=== PATIENT | female | born 1940 | race Caucasian/White ===

== ENCOUNTER 2016-11-17 21:31 | Observation (INO) | payer OTHER ==
[2016-11-17] MEDS ORDERED: TRANEXAMIC ACID 1,000 MG/10 ML VIAL TP ONE (22:05)
[2016-11-17] MEDS ORDERED: OXYMETAZOLINE 30 ML NASAL SPRAY EACHNARE ONE (22:05)
--- NOTE | 2016-11-17 22:15 | EDPHY ---
H & P Smoking Status: Never smoked Time Seen by Provider: 11/17/16 21:47 HPI/ROS: CHIEF COMPLAINT: Left-sided epistaxis HISTORY OF PRESENT ILLNESS: 76-year-old female on daily Pradaxa complaining of left-sided epistaxis since this evening. Arrives by ambulance. Epistaxis not controlled via direct pressure. No dizziness. No nausea or vomiting. No syncope or near syncope. No chest pain. No dyspnea. No visual disturbance. PRIMARY CARE PROVIDER: REVIEW OF SYSTEMS: A ten point review of systems was performed and is negative with the exception of the items mentioned in the HPI PAST MEDICAL & SURGICAL HISTORY: Atrial fibrillation. Pulmonary hypertension. SOCIAL HISTORY:nonsmoker PHYSICAL EXAM (Prior to examination, patient consented to physical exam, hands were washed and my usual and customary physical exam procedures followed) 1) GENERAL: Well-developed, well-nourished, alert and oriented. Appears anxious 2) HEAD: Normocephalic, atraumatic 3) HEENT: Pupils equal, round, reactive to light bilaterally. Sclera anicteric. Nasopharynx: Bleeding bilaterally, appears to be primary source on the left side with visible active bleeding area is noted anteriorly. 4) NECK: Full range of motion, no meningeal signs. 5) LUNGS: Clear auscultation bilaterally, no wheezes, no rhonchi, no retractions. 6) HEART: Regular rate and rhythm, no murmur, no heave, no gallop. 7) ABDOMEN: No guarding, no rebound, no focal tenderness,, 8) MUSCULOSKELETAL: No peripheral edema or discoloration.] 9) BACK: No CVA tendernessy. 10) SKIN: No rash, no petechiae. 11) Psychiatric: Patient is oriented X 3, there is no agitation. DIFFERENTIAL DIAGNOSIS: In no particular include but limited to anterior epistaxis, posterior epistaxis, anemia (Abraham,Vincent Chanel) Constitutional: Initial Vital Signs Temperature (C) 36.4 C 11/17/16 21:35 Heart Rate 92 11/17/16 21:35 Respiratory Rate 18 11/17/16 21:35 Blood Pressure 107/85 H 11/17/16 21:35 O2 Sat (%) 96 11/17/16 21:35 O2 Delivery Mode Room Air Allergies/Adverse Reactions: NSAIDS (Non-Steroidal Anti-Inflamma Allergy (Intermediate, Verified 11/17/16 21: 50) Rash quinidine Allergy (Verified 11/17/16 21:50) shellfish derived Allergy (Verified 11/17/16 21:50) Home Medications: Medication Instructions Recorded Atenolol [Tenormin 100 mg (*)] 100 mg PO BID 08/01/15 Losartan Potassium [Cozaar 50 mg 50 mg PO DAILY 08/01/15 (*)] Dabigatran Etexilate Mesyl 150 mg PO BID 06/27/16 [Pradaxa 150 MG (*)] Ferrous Sulfate [Ferrous Sulf 325 325 mg PO DAILY #14 tab 11/18/16 MG (*)] Furosemide [Lasix 20 MG (*)] 20 mg PO DAILY PRN 11/18/16 Potassium Chloride [Klor-Con 10] 10 meq PO DAILY PRN 11/18/16 MDM/Departure - MDM Medications Given: Discontinued Medications Oxymetazoline HCl (Afrin Nasal [place]) 2 sprays EACHNARE EDNOW ONE Stop: 11/17/16 22:06 Last Admin: 11/17/16 22:29 Dose: 2 sprays Tranexamic Acid (Cyklokapron) 500 mg TP EDNOW ONE Stop: 11/17/16 22:06 Last Admin: 11/17/16 22:30 Dose: 500 mg ED Course/Re-evaluation: 11:20 p.m.: Patient is currently hemostatic after having rapid rhino packing placed. H&H was recheck and she has had a 10 point drop in her hematocrit in 30 minutes. This was redrawn just after placement of nasal packing. Discussed case Dr. Eri Howard in the ER. Expressed to the patient concern in her rapid hematocrit in presence of epistaxis. She is currently hemostatic. I do not think that discharge home is safe at this time. Patient is agreeable with this. I have reviewed old medical records she has had prior admissions for similar. 11:32 p.m.: Phone consultation with hospitalist Dr. De La Torre will admit patient for observation (Vincent Rosario) This patient was managed and treated by the physician temporary administrative assistant, in conjunction with me. She is a 76 year old female on Pradaxa for atrial fibrillation. She presented with left sided epistaxis. No trauma. She feels mildly lightheaded, denies chest pain or shortness of breath. Her bleeding was controlled with rhinostat nasal packing. When I examined her the rhinostat was in place and bleeding was under control. Her lungs were clear, heart irregularly irregular. Bloodwork revealed a decrease in Hgb from 14.5 to 12 and a decrease in Hct from 44.8 to 35.2 during her ED stay. She lives alone and has had previous epistaxis requiring hospitalization. She is quite anxious about tonight's bleeding. I feel that hospitalization is appropriate for continued monitoring of hct and hgb and to insure complete control of her epistaxis. (Eri Howard ) - Depart Disposition: [facility] Inpatient Acute Clinical Impression: Anterior epistaxis Condition: Fair
[2016-11-17 22:39] LABS: % IMMATURE GRANULYOCYTES 0.2 % (0.0-1.1); ABSOLUTE IMMATURE GRANULOCYTES 0.02 10^3/uL (0.00-0.10); ADD DIFF? NO; ADD MORPH? NO; ADD SCAN? NO; ATYPICAL LYMPHOCYTE FLAG 10 (0-99); FRAGMENT RBC FLAG 0 (0-99); HEMATOCRIT 44.8 % (38.0-47.0); HEMOGLOBIN 14.5 g/dL (12.6-16.3); LEFT SHIFT FLG 0 (0-99); LIPEMIA HEMOLYSIS FLAG 80 (0-99); MEAN CELL HEMOGLOBIN 32.1 pg (27.9-34.1); MEAN CELL HEMOGLOBIN CONCENTR. 32.4 g/dL (32.4-36.7); MEAN CELL VOLUME 99.1 fL (81.5-99.8); MEAN PLATELET VOLUME 11.5 fL (8.7-11.7); PLATELET CLUMPS FLAG 60 (0-99); PLATELET COUNT 185 10^3/uL (150-400); RED BLOOD CELL COUNT 4.52 10^6/uL (4.18-5.33); RED CELL DISTRIBUTION WIDTH 15.8 % (11.5-15.2)
[2016-11-17 22:48] LABS: INR 1.26 (0.83-1.16); PROTIME(PATIENT) 15.8 SEC (12.0-15.0)
[2016-11-17 22:49] LABS: APTT 34.3 SEC (23.0-38.0)
[2016-11-17 22:51] LABS: ANION GAP 17 mEq/L (8-16); CALCIUM 9.7 mg/dL (8.5-10.4); CARBON DIOXIDE 21 mEq/l (22-31); CHLORIDE 106 mEq/L (97-110); CREATININE 0.9 mg/dL (0.6-1.0); GLOMERULAR FILTRATION RATE > 60; GLUCOSE 112 mg/dL (70-100); POTASSIUM 3.6 mEq/L (3.5-5.2); SODIUM 144 mEq/L (134-144)
[2016-11-17 23:03] LABS: % IMMATURE GRANULYOCYTES 0.4 % (0.0-1.1); ABSOLUTE IMMATURE GRANULOCYTES 0.03 10^3/uL (0.00-0.10); ADD DIFF? NO; ADD MORPH? NO; ADD SCAN? NO; ATYPICAL LYMPHOCYTE FLAG 10 (0-99); FRAGMENT RBC FLAG 0 (0-99); HEMATOCRIT 35.2 % (38.0-47.0); LEFT SHIFT FLG 0 (0-99); LIPEMIA HEMOLYSIS FLAG 90 (0-99); MEAN CELL HEMOGLOBIN 32.8 pg (27.9-34.1); MEAN CELL HEMOGLOBIN CONCENTR. 34.1 g/dL (32.4-36.7); MEAN CELL VOLUME 96.2 fL (81.5-99.8); MEAN PLATELET VOLUME 10.9 fL (8.7-11.7); PLATELET CLUMPS FLAG 0 (0-99); PLATELET COUNT 145 10^3/uL (150-400); RED BLOOD CELL COUNT 3.66 10^6/uL (4.18-5.33); RED CELL DISTRIBUTION WIDTH 15.7 % (11.5-15.2)
[2016-11-17] MEDS ORDERED: ACETAMINOPHEN 325 MG TAB PO PRN (23:56)
[2016-11-17] MEDS ORDERED: ONDANSETRON DISINTEGRATING 4 MG TAB PO PRN (23:56)
[2016-11-17] MEDS ORDERED: ONDANSETRON 4 MG/2 ML VIAL IVP PRN (23:56)
--- NOTE | 2016-11-18 00:05 | PDGENHP ---
History and Physical - Chief Complaint nosebleed - History of Present Illness Patient is a 76/F wiht Afib on pradaxa and HTN who presents to the ED with epistaxis. Patient states she was watching a movie in her home when she suddenly sneezed 4 times in a row. Shortly after this she developed a brisk nosebleed, with bright red blood oozing from her L nostril. She felt immediately that she would not be able to control the bleeding on her own, so she called EMS and was transported to the ED. She states she felt momentarily dizzy for a short time while waiting in the ED, however, denies any associated chest pain, pre-syncopal symptoms, palpitations or shortness of breath. Of note, she has had a history of epistaxis requiring hospital observation in 2014, but has not had a recurrence since then. On arrival to the ED, patient was afebrile and hemodynamically stable. CBC was drawn x 2 and showed evidence of H/H drop. A nasal rocket was placed in the L nare and bleeding stopped. She was then admitted to the hospitalist service for further management. History Information - Allergies/Home Medication List Allergies/Adverse Reactions: NSAIDS (Non-Steroidal Anti-Inflamma Allergy (Intermediate, Verified 11/17/16 21: 50) Rash quinidine Allergy (Verified 11/17/16 21:50) shellfish derived Allergy (Verified 11/17/16 21:50) Home Medications: Atenolol [Tenormin 100 mg (*)] 100 mg PO BID 08/01/15 [Last Taken 06/26/16 21:00 ] Losartan Potassium [Cozaar 50 mg (*)] 50 mg PO DAILY 08/01/15 [Last Taken ] Dabigatran Etexilate Mesyl [Pradaxa 150 MG (*)] 150 mg PO BID 06/27/16 [Last Taken 06/26/16 21:00] I have personally reviewed and updated: family history, medical history, social history, surgical history - Past Medical History Additional medical history: Atrial fibrillation. HTN - Surgical History Additional surgical history: tonsillectomy - Family History Additional family history: M: HTN. F: DM2 - Social History Smoking Status: Never smoked Alcohol Use: None Drug Use: None Additional social history: Patient is retired, lives alone. Review of Systems ROS: 10pt was reviewed & negative except for what was stated in HPI & below Physical Exam Temp Pulse Resp BP Pulse Ox 36.7 C 88 16 116/81 H 90 L 11/17/16 23:52 11/17/16 23:52 11/17/16 23:52 11/17/16 23:52 11/17/16 23:52 Constitutional: no apparent distress, appears nourished, not in pain Eyes: PERRL, anicteric sclera, EOMI Ears, Nose, Mouth, Throat: other (L nare with nasal packing in place; evidence of recent bleeding but no active bleeding present; no blood seen in the posterior pharynx) Cardiovascular: no murmur, rub, or gallop, irregularly irregular, pulses symmetric bilaterally, edema (1+ bilateral pitting edema), No JVD Peripheral Pulses: 2+: dorsalis-pedis (R), dorsalis-pedis (L) Respiratory: no respiratory distress, no rales or rhonchi, clear to auscultation Gastrointestinal: normoactive bowel sounds, soft, non-tender abdomen, no palpable masses, No guarding, No rebound Genitourinary: no bladder fullness, no bladder tenderness Skin: warm, normal color, no rashes or abrasions, no fluctuance, no induration, No mottled Musculoskeletal: full muscle strength, no muscle tenderness, normal joint ROM, no joint effusions Neurologic: AAOx3, sensation intact bilaterally, CN II-XII Intact, No weakness, No numbness Lab Data & Imaging Review 11/17/16 22:45 11/17/16 22:28 WBC 7.22 10^3/uL (3.80-9.50) 11/17/16 22:45 RBC 3.66 10^6/uL (4.18-5.33) L 11/17/16 22:45 Hgb 12.0 g/dL (12.6-16.3) L 11/17/16 22:45 Hct 35.2 % (38.0-47.0) L 11/17/16 22:45 MCV 96.2 fL (81.5-99.8) 11/17/16 22:45 MCH 32.8 pg (27.9-34.1) 11/17/16 22:45 MCHC 34.1 g/dL (32.4-36.7) 11/17/16 22:45 RDW 15.7 % (11.5-15.2) H 11/17/16 22:45 Plt Count 145 10^3/uL (150-400) L 11/17/16 22:45 MPV 10.9 fL (8.7-11.7) 11/17/16 22:45 Neut % (Auto) 59.8 % (39.3-74.2) 11/17/16 22:45 Lymph % (Auto) 28.9 % (15.0-45.0) 11/17/16 22:45 [place] % (Auto) 8.7 % (4.5-13.0) 11/17/16 22:45 Eos % (Auto) 1.5 % (0.6-7.6) 11/17/16:45 Baso % (Auto) 0.7 % (0.3-1.7) 11/17/16 22:45 Nucleat RBC Rel Count 0.0 % (0.0-0.2) 11/17/16 22:45 Absolute Neuts (auto) 4.31 10^3/uL (1.70-6.50) 11/17/16 22:45 Absolute Lymphs (auto) 2.09 10^3/uL (1.00-3.00) 11/17/16 22:45 Absolute Monos (auto) 0.63 10^3/uL (0.30-0.80) 11/17/16 22:45 Absolute Eos (auto) 0.11 10^3/uL (0.03-0.40) 11/17/16 22:45 Absolute Basos (auto) 0.05 10^3/uL (0.02-0.10) 11/17/16:45 Absolute Nucleated RBC 0.00 10^3/uL (0-0.01) 11/17/16:45 Immature Gran % 0.4 % (0.0-1.1) 11/17/16:45 Immature Gran # 0.03 10^3/uL (0.00-0.10) 11/17/16:45 PT 15.8 SEC (12.0-15.0) H 11/17/16 22:28 INR 1.26 (0.83-1.16) H 11/17/16 22:28 APTT 34.3 SEC (23.0-38.0) 11/17/16 22:28 Sodium 144 mEq/L (134-144) 11/17/16 22:28 Potassium 3.6 mEq/L (3.5-5.2) 11/17/16 22: Chloride 106 mEq/L (97-110) 11/17/16: Carbon Dioxide 21 mEq/l (22-31) L 11/17/16 22: Anion Gap 17 mEq/L (8-16) H 11/17/16: BUN 21 mg/dL (7-23) 11/17/16: Creatinine 0.9 mg/dL (0.6-1.0) 11/17/16 22: Estimated GFR > 60 11/17/16 22: Glucose 112 mg/dL (70-100) H 11/17/16: Calcium 9.7 mg/dL (8.5-10.4) 11/17/16 22:28 Assessment & Plan Assessment: Patient is a 76/F with Afib on systemic anticoagulation and hypertension who presents to the ED with acute onset anterior epistaxis. Bleeding has been controlled with ED intervention/packing. Plan: # anterior epistaxis Bleeding has stopped. Will continue nasal packing overnight and monitor H/H and hemodynamics. If bleeding recurs, can consider ENT consultation. # chronic atrial fibrillation HR stable, rate controlled. Will continue home medications including pradaxa. # HTN BP stable. Will cont home BP meds. # dispo: admit to observation # gen: Cardiac diet Full code
[2016-11-18 05:13] LABS: % IMMATURE GRANULYOCYTES 0.2 % (0.0-1.1); ABSOLUTE IMMATURE GRANULOCYTES 0.02 10^3/uL (0.00-0.10); ADD DIFF? NO; ADD MORPH? NO; ADD SCAN? NO; ATYPICAL LYMPHOCYTE FLAG 10 (0-99); FRAGMENT RBC FLAG 0 (0-99); HEMATOCRIT 33.8 % (38.0-47.0); HEMOGLOBIN 11.5 g/dL (12.6-16.3); LEFT SHIFT FLG 0 (0-99); LIPEMIA HEMOLYSIS FLAG 90 (0-99); MEAN CELL VOLUME 97.1 fL (81.5-99.8); MEAN PLATELET VOLUME 11.1 fL (8.7-11.7); PLATELET CLUMPS FLAG 0 (0-99); PLATELET COUNT 153 10^3/uL (150-400); RED BLOOD CELL COUNT 3.48 10^6/uL (4.18-5.33); RED CELL DISTRIBUTION WIDTH 15.9 % (11.5-15.2)
[2016-11-18 05:33] LABS: ANION GAP 11 mEq/L (8-16); CALCIUM 8.9 mg/dL (8.5-10.4); CARBON DIOXIDE 21 mEq/l (22-31); CHLORIDE 110 mEq/L (97-110); CREATININE 0.7 mg/dL (0.6-1.0); GLOMERULAR FILTRATION RATE > 60; GLUCOSE 99 mg/dL (70-100); POTASSIUM 3.9 mEq/L (3.5-5.2); SODIUM 142 mEq/L (134-144)
[2016-11-18 08:40] VITALS: BP 124/86; PULSE 93; RESP 12; TEMP 97.4; O2SAT 93
[2016-11-18] MEDS ORDERED: FUROSEMIDE 20 MG TAB PO PRN (10:01)
--- NOTE | 2016-11-18 10:19 | GDS ---
[f rep st] DISCHARGE SUMMARY FINAL DIAGNOSES: 1. Epistaxis. 2. Acute blood loss anemia. 3. Atrial fibrillation, on chronic Pradaxa. 4. Hypertension. HOSPITAL COURSE: A 76-year-old female, admitted with epistaxis. She received nasal packing in the emergency department with good hemostasis. Her hemoglobin fell from 14.5 to 11.5, but has been stab le on two rechecks, which were 6 hours apart. She has not had any signs of anemia, including dizzin ess, chest pain, shortness of breath. She is a [facility] patient and follows with an ENT physician at [facility]. I recommend that she follow up in 2-3 days to have the nasal packing removed, and possible cauterization. I think it is prudent f or her to continue her Pradaxa at this point, given the need for stroke prophylaxis with atrial fibr illation. I have discussed strict return precautions with her, and she is comfortable with this gregory n. She has neighbors who will check in on her over the weekend. I have recommended that she skip h er morning dose of Pradaxa, but restart that this evening. /[id number]/MODL
[2016-11-18] MEDS ORDERED: POTASSIUM CL 10 MEQ TAB PO PRN (10:30)
[2016-11-18] MEDS ORDERED: DABIGATRAN ETEXILATE MESYL 150 MG CAP PO SCH (21:00)
[2016-11-18] MEDS ORDERED: ATENOLOL 100 MG TAB PO SCH (21:00)
[2016-11-19] MEDS ORDERED: LOSARTAN POTASSIUM 50 MG TAB PO SCH (09:00)
== END 2016-11-18 11:30 | disposition home or self-care (01) ==
LOC: EDUNIT# → F2W 11-18 00:12
PROVIDERS: ADMIT Internal Medicine; ATTEND Student in an Organized Health Care Education/Training Program
PROC: 2Y41X5Z Packing of Nasal Region using Packing Material (ICD-10-PCS; principal; 2016-11-17)
DX: R04.0 Epistaxis (principal); I48.2 Chronic atrial fibrillation; Z79.01 Long term (current) use of anticoagulants; D50.0 Iron deficiency anemia secondary to blood loss (chronic); I10 Essential (primary) hypertension; I27.2 Other secondary pulmonary hypertension
CPT/HCPCS: 30901; G0378

== ENCOUNTER 2017-06-09 02:24 | Emergency (ER) | payer OTHER ==
[2017-06-09] MEDS ORDERED: OXYMETAZOLINE 30 ML NASAL SPRAY EACHNARE ONE (02:29)
[2017-06-09] MEDS ORDERED: SILVER NITRATE APPLICATOR 1 APPL TP ONE (02:29)
[2017-06-09 02:33] VITALS: RESP 18; TEMP 97.5; O2SAT 94
--- NOTE | 2017-06-09 03:13 | EDPHY ---
H & P Stated Complaint: epistaxis,. hx of same, uses pradaxa Time Seen by Provider: 06/09/17 02:27 HPI/ROS: HPI The patient presents with epistaxis from her left naris that has been present for the last 1 hour, it started suddenly and has been dripping. She has not had any clots. This is painless. It has not gotten any worse. She has a history of this on several occasions, she is on Pradaxa. She does not have any lightheadedness, dizziness, shortness of breath. She has not taken her blood pressure medications. REVIEW OF SYSTEMS Constitutional: No fever, no chills. Eyes: No discharge. ENT: No sore throat. Cardiovascular: No chest pain, no palpitations. Respiratory: No cough, no shortness of breath. Gastrointestinal: No abdominal pain, no vomiting. Genitourinary: No hematuria. Musculoskeletal: No back pain. Skin: No rashes. Neurological: No headache. PMHx: Atrial fibrillation, hypertension, hypertension Soc Hx: Lives independently PHYSICAL General Appearance: Alert, no distress Eyes: Pupils equal and round no pallor or injection ENT, Mouth: Mucous membranes moist, ongoing bleeding from left naris, no obvious source of bleeding visualized Respiratory: Breathing comfortably Neurological: A&O, moves all extremities Skin: Warm and dry, no rashes Musculoskeletal: Neck is supple non tender Extremities: symmetrical, full range of motion Psychiatric: Patient is oriented X 3, there is no agitation Source: Patient Exam Limitations: No limitations - Personal History Tetanus Vaccine Date: 2012 - Medical/Surgical History Hx Asthma: No Hx Chronic Respiratory Disease: No Hx Diabetes: No Hx Cardiac Disease: Yes Hx Renal Disease: No Hx Cirrhosis: No Hx Alcoholism: No Hx HIV/AIDS: No Hx Splenectomy or Spleen Trauma: No Other PMH: Chronic atrial fibrillation, HTN, chf, tonsillectomy - Social History Smoking Status: Never smoked Constitutional: Initial Vital Signs Temperature (C) 36.4 C 06/09/17 02:30 Heart Rate 93 06/09/17 02:30 Respiratory Rate 18 06/09/17 02:30 Blood Pressure 200/135 H 06/09/17 02:30 O2 Sat (%) 94 06/09/17 02:30 O2 Delivery Mode Room Air Allergies/Adverse Reactions: NSAIDS (Non-Steroidal Anti-Inflamma Allergy (Intermediate, Verified 06/09/17 02: 34) Rash quinidine Allergy (Verified 06/09/17 02:34) shellfish derived Allergy (Verified 06/09/17 02:34) Home Medications: Medication Instructions Recorded Atenolol [Tenormin 100 mg (*)] 100 mg PO BID 08/01/15 Losartan Potassium [Cozaar 50 mg 50 mg PO DAILY 08/01/15 (*)] Dabigatran Etexilate Mesyl 150 mg PO BID 06/27/16 [Pradaxa 150 MG (*)] Ferrous Sulfate [Ferrous Sulf 325 325 mg PO DAILY #14 tab 11/18/16 MG (*)] Furosemide [Lasix 20 MG (*)] 20 mg PO DAILY PRN 11/18/16 Potassium Chloride [Klor-Con 10] 10 meq PO DAILY PRN 11/18/16 Medical Decision Making Procedures: NOSE BLEED Procedure: Epistaxis control. Indication: nosebleed not controlled by direct pressure. Risks, benefits, alternatives discussed with patient and consent obtained. The left naris was anesthetized with lidocaine with epinephrine. The anterior epistaxis was identified. The patient was treated with 5.5 cm rhino rocket. Nasal packing. Following the procedure the patient was re-examined and the bleeding was well controlled. The patient tolerated the procedure well. The procedure was performed by myself. Differential Diagnosis: This is a 77-year-old female on Pradaxa with recurrent epistaxis, previously requiring admission to the hospital. She has had about 1 hour of bleeding which has not been serious though not improved with nasal pressure. Differential diagnosis includes anterior epistaxis, posterior epistaxis, less likely nasal fracture. In the emergency department, the patient was given Afrin, then lidocaine with epinephrine, then rhino rocket was placed in left nostril with good result. Hemostasis was achieved. I was unable to localize any bleeding directly. I will have her follow up with ENT at [facility] where she follows. She can keep the rhino rocket in for 2-3 days. - Data Points Medications Given: Discontinued Medications Oxymetazoline HCl (Afrin Nasal [place]) 2 sprays EACHNARE EDNOW ONE Stop: 06/09/17 02:30 Last Admin: 06/09/17 02:39 Dose: Not Given Silver Nitrate/Potassium Nitrate (Silver Nitrate Applicator) 1 each TP EDNOW ONE Stop: 06/09/17 02:30 Last Admin: 06/09/17 02:39 Dose: Not Given Departure - Departure Disposition: Home, Routine, Self-Care Clinical Impression: Anterior epistaxis Condition: Good Instructions: Nosebleed (ED) Additional Instructions: Please return to the emergency room if your worse in any way. Please follow-up with your Ear Nose and Throat doctor in the next 2-3 days. Keep the packing in until then Referrals: [facility] ,. [Edm Groups for Call Sched] - As per Instructions
[2017-06-09 04:11] VITALS: BP 168/117; PULSE 82
== END 2017-06-09 04:11 | disposition home or self-care (01) ==
LOC: EDUNIT#
PROC: 2Y41X5Z Packing of Nasal Region using Packing Material (ICD-10-PCS; principal; 2017-06-09)
DX: R04.0 Epistaxis (principal); I11.0 Hypertensive heart disease with heart failure; I50.9 Heart failure, unspecified

== ENCOUNTER 2017-09-19 03:54 | Emergency (ER) | payer OTHER ==
[2017-09-19 04:13] LABS: PLATELET COUNT 183 10^3/uL (150-400)
[2017-09-19] MEDS ORDERED: diphenhydrAMINE 25 MG CAP PO ONE (04:29)
[2017-09-19 05:56] VITALS: RESP 18
--- NOTE | 2017-09-19 06:13 | EDPHY ---
H & P Stated Complaint: Lip swelling/LLE wound HPI/ROS: HPI The patient presents with lip swelling which has been present for the last 5 days though became worse this morning. She initially had chapped lips and then she noticed swelling of her upper and lower lips over the last few days. This morning, she felt that the mucosal surface of both of her lips was more swollen than usual, so she called 911. She does not have any difficulty swallowing or breathing. She does not have any rash. She does not have any nausea or vomiting. She does not have any dizziness. She has no prior history of similar reaction. She is on no new medications and using no new lotions or soaps. She has no prior history of similar. REVIEW OF SYSTEMS Constitutional: No fever, no chills. Eyes: No discharge. ENT: No sore throat. Cardiovascular: No chest pain, no palpitations. Respiratory: No cough, no shortness of breath. Gastrointestinal: No abdominal pain, no vomiting. Genitourinary: No hematuria. Musculoskeletal: No back pain. Skin: No rashes. Neurological: No headache. PMHx: CHF, atrial fibrillation, hypertension, history of epistaxis Soc Hx: Lives independently PHYSICAL General Appearance: Alert, no distress Eyes: Pupils equal and round no pallor or injection ENT, Mouth: Upper and lower lips symmetrically slightly edematous, lower lip has dry tissue, tongue is normal appearing, Mucous membranes moist Respiratory: There are no retractions, lungs are clear to auscultation Cardiovascular: Regular rate and rhythm Gastrointestinal: Abdomen is soft and non-tender, no masses, bowel sounds normal Neurological: A&O, moves all extremities Skin: Warm and dry, left lower extremity with 8 cm circular erythematous superficial ulceration with mild surrounding erythema which is not warmer tender to the touch Musculoskeletal: Neck is supple non tender Extremities: symmetrical, full range of motion Psychiatric: Patient is oriented X 3, there is no agitation Source: Patient Exam Limitations: No limitations - Personal History Current Tetanus/Diphtheria Vaccine: Yes Current Tetanus Diphtheria and Acellular Pertussis (TDAP): Unsure Tetanus Vaccine Date: 2012 - Medical/Surgical History Hx Asthma: No Hx Chronic Respiratory Disease: No Hx Diabetes: No Hx Cardiac Disease: Yes Hx Renal Disease: No Hx Cirrhosis: No Hx Alcoholism: No Hx HIV/AIDS: No Hx Splenectomy or Spleen Trauma: No Other PMH: Chronic atrial fibrillation, HTN, chf, tonsillectomy - Social History Smoking Status: Never smoked Constitutional: Initial Vital Signs Temperature (C) 36.7 C 09/19/17 03:59 Heart Rate 92 09/19/17 03:59 Respiratory Rate 20 09/19/17 03:59 Blood Pressure 153/121 H 09/19/17 03:59 O2 Sat (%) 93 09/19/17 03:59 O2 Delivery Mode Room Air Allergies/Adverse Reactions: NSAIDS (Non-Steroidal Anti-Inflamma Allergy (Intermediate, Verified 09/19/17 04: 02) Rash quinidine Allergy (Verified 09/19/17 04:02) shellfish derived Allergy (Verified 09/19/17 04:02) Home Medications: Medication Instructions Recorded Atenolol [Tenormin 100 mg (*)] 100 mg PO BID 08/01/15 Losartan Potassium [Cozaar 50 mg 50 mg PO DAILY 08/01/15 (*)] Dabigatran Etexilate Mesyl 150 mg PO BID 06/27/16 [Pradaxa 150 MG (*)] Furosemide [Lasix 20 MG (*)] 20 mg PO DAILY PRN 11/18/16 Potassium Chloride [Klor-Con 10] 10 meq PO DAILY PRN 11/18/16 Medical Decision Making Differential Diagnosis: This is a 77-year-old female, history of atrial fibrillation, CHF, hypertension , brought in by ambulance after increased upper and lower lip swelling which has been present for the last 5 days. She has no prior history of similar. On exam, her vital signs are normal, she does not have any tongue or uvular edema. Her lungs are clear, she has no urticaria. She does have a leg wound which is being treated by her primary care doctor, and she has completed a course of antibiotics, Augmentin, about 5 days ago. It is unclear if this could be causing her lip swelling though this does appear to be angioedema. I doubt cellulitis. In the emergency department, patient was given a dose of Benadryl with improvement in her symptoms. Her leg wound was cleansed and dressed appropriately. She will be discharged with return precautions. - Data Points Laboratory Results: Laboratory Results 09/19/17 04:00 09/19/17 04:00 Medications Given: Discontinued Medications Diphenhydramine HCl (Benadryl) 25 mg PO EDNOW ONE Stop: 09/19/17 04:30 Last Admin: 09/19/17 04:36 Dose: 25 mg Departure - Departure Disposition: Home, Routine, Self-Care Clinical Impression: Allergic reaction, Lip swelling, CHF (congestive heart failure) Condition: Good Instructions: Angioedema (ED) Additional Instructions: You can take Benadryl 25 mg every 6 hr until your lip swelling improves. Return to the emergency department if your worse in any way. Otherwise please follow-up with your primary care doctor for possible referral to an emergency man. Referrals: [facility] [Other] - As per Instructions
[2017-09-19 06:31] VITALS: BP 141/117; PULSE 88; TEMP 97.7; O2SAT 93
== END 2017-09-19 06:40 | disposition home or self-care (01) ==
LOC: EDUNIT#
DX: R22.0 Localized swelling, mass and lump, head (principal); T78.40XA Allergy, unspecified, initial encounter; I11.0 Hypertensive heart disease with heart failure; I50.9 Heart failure, unspecified

== ENCOUNTER 2018-06-06 22:55 | Observation (INO) | payer OTHER ==
[2018-06-06] MEDS ORDERED: OXYMETAZOLINE 30 ML NASAL SPRAY EACHNARE ONE (23:00)
[2018-06-06] MEDS ORDERED: ONDANSETRON 4 MG/2 ML VIAL IVP ONE (23:09)
[2018-06-06] MEDS ORDERED: ONDANSETRON 4 MG/2 ML VIAL ONE (23:10)
--- NOTE | 2018-06-06 23:15 | EDPHY ---
H & P Stated Complaint: nose bleed for past day Time Seen by Provider: 06/06/18 23:05 HPI/ROS: Chief Complaint: Nosebleed HPI: 78-year-old woman with a history of atrial fibrillation, on Pradaxa began having epistaxis from her right nostril earlier today. She has had intermittent bleeding in the began profuse tonight. She has had episodes of epistaxis in the past. No recent illness. Mild headache, no nausea or vomiting. No lightheadedness or fainting. She states she did take her Pradaxa this evening. Paramedics noted that the her home was very disheveled and dirty and there were numerous insects in the home and they had concerns about her welfare. ROS: 10 systems were reviewed and were negative except those elements noted in the HPI. PMH: Hypertension, atrial fibrillation Social History: No smoking, no alcohol, no recreational drug use Family History: non-contributory Physical Exam: Gen: Awake, Alert, No Distress HEENT: Nose: Brisk anterior right nasal epistaxis Eyes: PERRLA, EOMI Mouth: Moist mucosa Neck: Supple, no JVD Chest: nontender, lungs clear to auscultation Heart: S1, S2 normal, no murmur Abd: Soft, non-tender, no guarding Back: no CVA tenderness, no midline tenderness Ext: no edema, non-tender Skin: no rash Neuro: CN II-XII intact, Sensation grossly intact, Strength 5/5 in bilateral upper and lower extremities - Personal History Current Tetanus/Diphtheria Vaccine: Yes Current Tetanus Diphtheria and Acellular Pertussis (TDAP): Yes Tetanus Vaccine Date: 2012 - Medical/Surgical History Hx Asthma: No Hx Chronic Respiratory Disease: No Hx Diabetes: No Hx Cardiac Disease: Yes Hx Renal Disease: No Hx Cirrhosis: No Hx Alcoholism: No Hx HIV/AIDS: No Hx Splenectomy or Spleen Trauma: No Other PMH: Chronic atrial fibrillation, HTN, chf, tonsillectomy - Social History Smoking Status: Never smoked Constitutional: Initial Vital Signs Temperature (C) 36.5 C 06/06/18 23:02 Heart Rate 101 H 06/06/18 23:02 Respiratory Rate 18 06/06/18 23:02 Blood Pressure 149/118 H 06/06/18 23:02 O2 Sat (%) 92 06/06/18 23:02 O2 Delivery Mode Room Air Allergies/Adverse Reactions: NSAIDS (Non-Steroidal Anti-Inflamma Allergy (Intermediate, Verified 06/06/18 23: 04) Rash quinidine Allergy (Verified 06/06/18 23:04) shellfish derived Allergy (Verified 06/06/18 23:04) Home Medications: Medication Instructions Recorded Atenolol [Tenormin 100 mg (*)] 100 mg PO BID 08/01/15 Losartan Potassium [Cozaar 50 mg 50 mg PO DAILY 08/01/15 (*)] Dabigatran Etexilate Mesyl 150 mg PO BID 06/27/16 [Pradaxa 150 MG (*)] Furosemide [Lasix 20 MG (*)] 20 mg PO DAILY PRN 11/18/16 Potassium Chloride [Klor-Con 10] 10 meq PO DAILY PRN 11/18/16 Medical Decision Making Procedures: Procedure: Epistaxis control. After verbal consent was obtained, the patient was anesthetized with 4% lidocaine. The anterior epistaxis was identified. The patient was treated with tranexamic acid topically followed by a 7.5 cm rhino rocket. Following the procedure the patient was re-examined and the bleeding was well controlled. The patient tolerated the procedure well. The procedure was performed by myself. ED Course/Re-evaluation: 78-year-old on Pradaxa with brisk anterior epistaxis. This be controlled emergency department. Her H&H are appropriate. She has required admission to the hospital in the past. Given the briskness of her bleeding and her anticoagulation patient will need to be admitted for observation. I also have concerns about her living conditions and her safety at home given the report by the paramedics. I have discussed with the [employer] customer [employer] representative. They agree with admission to our hospital for observation and treatment. I have discussed with Dr. Orellana, hospitalist. She will admit to her service. I have discussed with Dr. Chen, ENT. They will consult on the patient tomorrow morning. - Data Points Laboratory Results: Laboratory Results 06/06/18 23:08 06/06/18 23:08 06/06/18 06/06/18 06/06/18 23:08 23:08 23:08 WBC 7.18 10^3/uL 10^3/uL (3.80-9.50) RBC 4.13 10^6/uL L 10^6/uL (4.18-5.33) Hgb 13.6 g/dL g/dL (12.6-16.3) Hct 40.4 % % (38.0-47.0) MCV 97.8 fL fL (81.5-99.8) MCH 32.9 pg pg (27.9-34.1) MCHC 33.7 g/dL g/dL (32.4-36.7) RDW 14.2 % % (11.5-15.2) Plt Count 191 10^3/uL 10^3/uL (150-400) MPV 9.8 fL fL (8.7-11.7) Neut % (Auto) 41.7 % % (39.3-74.2) Lymph % (Auto) 45.1 % H % (15.0-45.0) [place] % (Auto) 8.8 % % (4.5-13.0) Eos % (Auto) 3.1 % % (0.6-7.6) Baso % (Auto) 1.0 % % (0.3-1.7) Nucleat RBC Rel Count 0.0 % % (0.0-0.2) Absolute Neuts (auto) 3.00 10^3/uL 10^3/uL (1.70-6.50) Absolute Lymphs (auto) 3.24 10^3/uL H 10^3/uL (1.00-3.00) Absolute Monos (auto) 0.63 10^3/uL 10^3/uL (0.30-0.80) Absolute Eos (auto) 0.22 10^3/uL 10^3/uL (0.03-0.40) Absolute Basos (auto) 0.07 10^3/uL 10^3/uL (0.02-0.10) Absolute Nucleated RBC 0.00 10^3/uL 10^3/uL (0-0.01) Immature Gran % 0.3 % % (0.0-1.1) Immature Gran # 0.02 10^3/uL 10^3/uL (0.00-0.10) Sodium 143 mEq/L mEq/L (135-145) Potassium 4.4 mEq/L mEq/L (3.3-5.0) Chloride 108 mEq/L mEq/L (97-110) Carbon Dioxide 25 mEq/l mEq/l (22-31) Anion Gap 10 mEq/L mEq/L (8-16) BUN 31 mg/dL H mg/dL (7-23) Creatinine 0.9 mg/dL mg/dL (0.6-1.0) Estimated GFR 60 Glucose 142 mg/dL H mg/dL (70-100) Calcium 10.0 mg/dL mg/dL (8.5-10.4) Patient ABO/Rh O POSITIVE Antibody Screen NEGATIVE Medications Given: Discontinued Medications Lidocaine HCl (Lidocaine Hcl 4% Topical Solution) 5 ml TP EDNOW ONE Stop: 06/06/18 23:19 Last Admin: 06/06/18 23:25 Dose: 10 ml Ondansetron HCl (Zofran) 4 mg IVP EDNOW ONE Stop: 06/06/18 23:10 Last Admin: 06/06/18 23:12 Dose: 4 mg Oxymetazoline HCl (Afrin Nasal [place]) 2 sprays EACHNARE EDNOW ONE Stop: 06/06/18 23:01 Last Admin: 06/06/18 23:27 Dose: Not Given Oxymetazoline HCl (Afrin Nasal [place]) 2 sprays NS ONCE ONE Stop: 06/07/18 02:02 Last Admin: 06/07/18 02:11 Dose: 2 spray Tranexamic Acid (Cyklokapron) 500 mg TP EDNOW ONE Stop: 06/06/18 23:17 Last Admin: 06/06/18 23:25 Dose: 500 mg Departure - Departure Disposition: [facility] Clinical Impression: Acute anterior epistaxis Condition: Fair
[2018-06-06] MEDS ORDERED: TRANEXAMIC ACID 1,000 MG/10 ML VIAL TP ONE (23:16)
[2018-06-06 23:18] LABS: PLATELET COUNT 191 10^3/uL (150-400)
[2018-06-06] MEDS ORDERED: LIDOCAINE HCL 4% TOPICAL SOLN 50ML TP ONE (23:18)
[2018-06-07] MEDS ORDERED: ONDANSETRON 4 MG/2 ML VIAL IVP PRN (00:26)
[2018-06-07] MEDS ORDERED: ACETAMINOPHEN 325 MG TAB PO PRN (00:26)
[2018-06-07] MEDS ORDERED: FUROSEMIDE 20 MG TAB PO PRN (00:29)
[2018-06-07] MEDS ORDERED: POTASSIUM CL 10 MEQ TAB PO PRN (00:29)
--- NOTE | 2018-06-07 01:26 | GHP ---
DATE OF ADMISSION: 06/07/2018 PRIMARY CARE PHYSICIAN: Thang Damian M.D. SOURCE: Patient provides history, appears reliable. EMR was reviewed and case discussed with ED pro vider. CHIEF COMPLAINT: Nose bleed. HISTORY OF PRESENT ILLNESS: This is a very pleasant 78-year-old female with past medical history sig nificant for chronic atrial fibrillation on Pradaxa, hypertension, CHF, sciatic pain, and a history o f epistaxis with admission in November of 2016, requiring placement of Rhino Rocket, who presents to the emergency department today from home after she called 911 for uncontrolled nosebleed from the right naris. The patient reports that she had a few episodes of sneezing and subsequently developed a bloo dy nose. She denies any associated dizziness. No chest pain or palpitations. No shortness of breat h. She continued to have persistent bleeding and given her history of hospitalization last year, she felt she needed emergent attention. In the emergency department, the patient was noted to have anterior epistaxis. A Rhino Rocket was in place with control of her bleeding. The patient also received TXA and aspirin. REVIEW OF SYSTEMS: A 10-point review of systems is negative except as noted above. ALLERGIES: To NSAIDs, quinidine, shellfish. HOME MEDICATIONS: As per EMR, atenolol 100 mg p.o. twice daily, Pradaxa 150 mg p.o. twice daily, Las ix 20 mg p.o. daily p.r.n., losartan 50 mg p.o. daily, potassium chloride 10 mEq p.o. daily p.r.n. wi th Lasix. PAST MEDICAL HISTORY: Significant for history of chronic atrial fibrillation on Pradaxa, benign esse ntial hypertension, CHF, chronic pain related to sciatica. PAST SURGICAL HISTORY: Tonsillectomy age 32. FAMILY HISTORY: Mother with hypertension, father diabetes. SOCIAL HISTORY: Patient is . She is retired. Lives alone in her home. Her neighbor is at [facility] providing some support. She does not smoke, drink, or utilize any illicit drugs. CODE STATUS: DNR/DNI. Patient does not have an advanced directive. PHYSICAL EXAMINATION: VITAL SIGNS: Upon arrival, blood pressure 149/118, heart rate 101, respirator y rate 18, O2 saturation 92% on room air, temperature 36.5. Current vitals signs: Blood pressure 13 7/88, heart rate is 84, respiratory rate 18. GENERAL: No acute distress. Tasha elderly female, who is resting quietly in the bed. Her neighbor is at bedside. HEAD: Normocephalic, atraumatic. E YES: Extraocular muscles grossly intact. Pupils equal, round with decreased reactivity to light jl aterally but symmetric. No scleral icterus conjunctival injection. ENT: Mucous membranes appear mo ist. The patient has a Rhino Rocket in the right naris and dried bright red blood present. She cont inues to have minimal amount of drainage. NECK: Trachea midline. CV: Irregularly irregular with n ormal rate. 2/6 systolic murmur appreciated. No rubs or gallops appreciated. RESPIRATORY: Lungs c lear to auscultation bilaterally. No wheezes, rales, or rhonchi appreciated. Unlabored breathing. ABDOMEN: Positive bowel sounds. Soft, nontender to palpation. No rebound, guarding, or masses appr eciated. : No suprapubic tenderness to palpation. No Sargent catheter in place. EXTREMITIES: Pat ient with 2+ pedal edema bilaterally. She has chronic lower extremity skin changes bilaterally. 1+ pedal pulses. Slightly limited secondary to edema. NEURO: Grossly nonfocal. No facial drooping. Patient is awake, alert, and oriented x3. PSYCH: Thought process, content and questions are all ely ropriate. The patient is pleasant and cooperative. LABORATORY STUDIES: WBC 7.18, H and H 13.6, 41.4, MCV of 97.8, platelet count is 191, no bands. Sod ium is 143, potassium 4.4, chloride 108, CO2 25, anion gap 10, BUN of 31, creatinine 0.9, GFR 60, glu cose is 1.2, calcium 10.0. ASSESSMENT AND PLAN: 1. Tasha 78-year-old female with history of atrial fibrillation on Pradaxa, congestive heart fail ure, hypertension, who presents to the emergency department today with sudden onset of epistaxis, unc ontrolled. Patient with a previous history of hospitalization for epistaxis requiring Rhino Rockets, which she has in place now. ENT has been consulted and will see the patient in the morning. Hemogl obin and hematocrit at this time are stable. Discussed with the patient recommendations for observat ion. Initially, she was hesitant and wanted to reconsider her options. However, given her previous history and hospitalization of anemia with episodes of epistaxis, she is amenable to be observed and hopes to leave in the early afternoon. Rhino Rocket will remain in place. Repeat hemoglobin and hem atocrit in the morning. 2. Chronic medical issues: a. Congestive heart failure with lower extremity edema, appears to be compensated, chronic. Congest duke heart failure not otherwise specified. Continue patient's Lasix. b. Chronic atrial fibrillation on Pradaxa. Given her epistaxis, holding Pradaxa for now. Rate is c ontrolled and will continue patient's atenolol. c. Benign essential hypertension. Continue losartan, atenolol, Lasix, as noted above. d. Chronic pain, sciatica. Currently, patient denies any issues. Symptoms are controlled. 3. Fluid, electrolyte, nutrition. Patient will receive some IV fluids overnight for supplementation . Electrolytes are adequate. Do not require replacement. Cardiac diet. 4. Prophylaxis. Sequential compression devices only. Holding Pradaxa due to acute bleeding. 5. Cor status. DNR/DNI. Patient does not have an advanced directive in place. Special care consul t to assist with completion. 6. Disposition. Patient admitted to observation status to [facility] floor. I did discuss this with t he patient that she is here for observation. She was initially quite disappointed and concerned rega rding this status, but advised that currently, she does not meet any criteria for full admission. Ad vised that we will monitor her hemoglobin and hematocrit closely and her vital signs and reassess in the morning, but hopefully will be able to discharge patient if her hemoglobin and hematocrit remain stable and no signs of active bleeding. ENT will also evaluate the patient in the morning and they w ere called from the emergency department. Social work consultation will be put into place. EMT had voiced concerns for condition of patient's living situation. She does live alone at home and guillermo stevens had some difficulties maneuvering her walker within the home due to the condition. Social work c onsultation in the morning. /[id number]/MODL
[2018-06-07] MEDS ORDERED: OXYMETAZOLINE 30 ML NASAL SPRAY NS ONE (02:01)
[2018-06-07] MEDS ORDERED: LOSARTAN POTASSIUM 50 MG TAB PO SCH (09:00)
[2018-06-07] MEDS ORDERED: ATENOLOL 50 MG TAB PO SCH (09:00)
--- NOTE | 2018-06-07 10:39 | ASMTCMCOM ---
Date Signed: 06/07/2018 10:38 AM Electronically Signed By:Belkys Parker
[2018-06-07 11:35] VITALS: BP 110/78
--- NOTE | 2018-06-07 14:04 | GDS ---
DISCHARGE DIAGNOSES: 1. Epistaxis. 2. History of congestive heart failure. 3. Chronic atrial fibrillation, on Pradaxa. PHYSICAL EXAM: GENERAL: The patient is alert. VITAL SIGNS: Afebrile at 36.5, pulse 69, respirator y rate 16. Blood pressure is 110/78. She is saturating greater than 90% on room air. I have seen a nd evaluated the patient on the day of discharge. HOSPITAL COURSE: The patient is an 78-year-old female who has a history of epistaxis, who presented to the emergency room with complaints of nosebleed. She was evaluated in the emergency room. Rhino Rocket has been placed. Her Pradaxa has been placed on hold, and she has no further signs of bleedin g. Her Pradaxa will be held at the time of disposition. She has had this on several occasions in past, and she is followed in the outpatient setting by [facility]. Appointment has been arranged f or her. She will follow up next week, on June 12 at 10:30 in the a.m., to have the removal of her Rhino Rocket, as well as followup with her primary care physician. There are no pending studies. DISCHARGE MEDICATIONS: Please refer to EMR form. Again, the patient's Pradaxa will be held, as well as a prescription for Augmentin has been provided prior to disposition. /[id number]/MODL
--- NOTE | 2018-06-07 17:17 | ASDISCHSUM ---
Discharge Information Plan Status:Home with No Needs Medically Cleared to Leave:06/07/2018 Discharge Date:06/07/2018 01:27 PM CM D/C Disposition:Home, Routine, Self-Care ADT D/C Disposition:Home, Routine, Self-Care Projected Discharge Date:06/07/2018 01:27 PM Transportation at D/C:Friend Discharge Delay Reason: Follow-Up Date:06/07/2018 01:27 PM Discharge Slot: Final Diagnosis:epistaxis Placement Information Patient Contact Information Contact Name:MIKEY Relationship:Jacques Address: City: [facility] Phone: [facility]/[place] Code: Email: Financial Information Financial Class:Medicare Advantage Plans Primary Plan Desc:[employer] ADV[employer]AGE OUTPAT Primary Plan Number:[id number] Secondary Plan Desc: Secondary Plan Number: Assessment Information Case Management Discharge Plan Note Case Management Discharge Discharge Order Complete? Answers: Yes Patient to Obtain Answers: Other Notes: [facility] Medications Transportation Arranged Answers: Family/Friends Family Notified Answers: Yes Notes: by pt Discharge Comments Notes: Spoke with pt, hospitalist and RN in the room. Pt to discharge independently and follow up with [facility] and have packing removed. CM made appointment for pt and placed date and time in discharge instructions. Pt also verbally notified. Pt comfortable with this plan and is arranging for transportation home today and for appointment on Sunday. No further CM needs noted at this time. Date Signed: 06/07/2018 05:16 PM Electronically Signed By:Belkys Parker Intervention Information Intervention Type:FRANKLIN-Signed Date of Service:06/07/2018 04:30 PM Patient Type:Observation Staff Member:REMY Parra Janessa Hours: Discipline: Severity: Comment:
== END 2018-06-07 13:27 | disposition home or self-care (01) ==
LOC: EDUNIT# → F3E 06-07 01:05
PROVIDERS: ADMIT Family Medicine; ATTEND Internal Medicine
PROC: 2Y41X5Z Packing of Nasal Region using Packing Material (ICD-10-PCS; principal; 2018-06-07)
DX: R04.0 Epistaxis (principal); I48.2 Chronic atrial fibrillation; I11.0 Hypertensive heart disease with heart failure; Z79.01 Long term (current) use of anticoagulants; I50.9 Heart failure, unspecified
CPT/HCPCS: 30901; 96374; 99285; G0378; J2405

== ENCOUNTER → 2018-07-26 | Emergency (ER) | payer OTHER ==
[~2018-07-26] MED LIST: OXYMETAZOLINE 30 ML NASAL SPRAY EACHNARE ONE; SILVER NITRATE APPLICATOR 1 APPL TP ONE; TRANEXAMIC ACID 1,000 MG/10 ML VIAL TP ONE
--- NOTE | 2018-07-26 12:11 | EDPHY ---
H & P Time Seen by Provider: 07/26/18 12:08 HPI/ROS: Chief complaint. Nose bleed HPI. Patient is an 78-year-old female on Pradaxa because of a history of atrial fibrillation. She had epistaxis that began this morning. It was bleeding from both nostrils. She did not have a sense of blood down the back of her throat. She has had no recent upper respiratory symptoms. There has been no injury to her nose. She has had previous epistaxis. ROS 10 systems were reviewed and negative with the exception of the elements mentioned in the history of present illness Past Medical/Surgical History: Atrial fibrillation, hypertension, CHF, tonsillectomy, previous epistaxis Social History: Single, nonsmoker, no alcohol Smoking Status: Never smoked Physical Exam: General Appearance: Alert well-developed female actively bleeding moderate distress. Vital signs are stable Eyes: Pupils equal and round no pallor or injection. ENT, blood coming from both nostrils. Trace blood coming down the back of her throat Respiratory: There are no retractions, lungs are clear to auscultation. Cardiovascular: Regular rate and rhythm. Gastrointestinal: Abdomen is soft and nontender, no masses, bowel sounds normal. Neurological: Awake and alert, sensory and motor exams grossly normal. Skin: Warm and dry, no rashes. Musculoskeletal: Neck is supple nontender. Extremities symmetrical, full range of motion. Psychiatric: Patient is oriented X 3, there is no agitation. Constitutional: Initial Vital Signs Temperature (C) 36.5 C 07/26/18 11:25 Heart Rate 96 07/26/18 11:25 Respiratory Rate 19 07/26/18 11:25 Blood Pressure 133/85 H 07/26/18 11:25 O2 Sat (%) 93 07/26/18 11:25 O2 Delivery Mode Room Air Allergies/Adverse Reactions: NSAIDS (Non-Steroidal Anti-Inflamma Allergy (Intermediate, Verified 06/06/18 23: 04) Rash quinidine Allergy (Verified 06/06/18 23:04) shellfish derived Allergy (Verified 06/06/18 23:04) Home Medications: Medication Instructions Recorded Atenolol [Tenormin 100 mg (*)] 100 mg PO BID 08/01/15 Losartan Potassium [Cozaar 50 mg 50 mg PO DAILY 08/01/15 (*)] Furosemide [Lasix 20 MG (*)] 20 mg PO DAILY PRN 11/18/16 Potassium Chloride [Klor-Con 10] 10 meq PO DAILY PRN 11/18/16 Acetaminophen [Tylenol 325mg (*)] 650 mg PO Q4HRS PRN tab 06/07/18 Pradaxa 07/26/18 Medical Decision Making Procedures: Clots cleared from nose by patient blowing. Afrin nose spray is given bilaterally. Cotton ball soaked in TXA are then placed. Cotton balls are left in place for 15 min ED Course/Re-evaluation: Re-evaluation at 1:30 p.m. And no further bleeding Serial evaluations and patient is not having any further bleeding. Re-evaluation 2:30 p.m. And no further bleeding. Patient and I discussed treatment plan including criteria for return importance of follow-up and further evaluation. She expresses understanding and agreement Differential Diagnosis: Epistaxis without source of bleeding identified. Bleeding has been controlled. Patient is on oral anticoagulation. - Data Points Medications Given: Discontinued Medications Oxymetazoline HCl (Afrin Nasal [place]) 2 sprays EACHNARE EDNOW ONE Stop: 07/26/18 12:24 Last Admin: 07/26/18 12:57 Dose: 2 puffs Silver Nitrate/Potassium Nitrate (Silver Nitrate Applicator) 1 each TP EDNOW ONE Stop: 07/26/18 12:24 Last Admin: 07/26/18 12:57 Dose: 1 each Tranexamic Acid (Cyklokapron) 500 mg TP EDNOW ONE Stop: 07/26/18 12:24 Last Admin: 07/26/18 12:57 Dose: 500 mg Departure - Departure Disposition: Home, Routine, Self-Care Clinical Impression: Epistaxis not due to trauma Condition: Good Instructions: Nosebleed (ED) Additional Instructions: Stop Pradaxa for the next 24 hr and then may resume. Caution with bending over to put your shoes on. Return for further bleeding Re-evaluation by [facility] next week on Sunday or Sunday Referrals: Patient,NotPresent [Unknown] - As per Instructions [facility] ,. [Edm Groups for Call Sched] - As per Instructions
[2018-07-26 15:16] VITALS: BP 137/98
== END | disposition home or self-care (01) ==
LOC: EDUNIT#
PROC: 095KXZZ Destruction of Nasal Mucosa and Soft Tissue, External Approach (ICD-10-PCS; principal; 2018-07-26)
DX: R04.0 Epistaxis (principal); I48.91 Unspecified atrial fibrillation; I11.0 Hypertensive heart disease with heart failure; I50.9 Heart failure, unspecified; Z79.01 Long term (current) use of anticoagulants

== ENCOUNTER 2018-08-13 18:54 | Emergency (ER) | payer OTHER ==
--- NOTE | 2018-08-13 18:56 | EDPHY ---
H & P Source: Patient, EMS Exam Limitations: No limitations - Personal History Tetanus Vaccine Date: 2012 - Medical/Surgical History Hx Asthma: No Hx Chronic Respiratory Disease: No Hx Diabetes: No Hx Cardiac Disease: Yes Hx Renal Disease: No Hx Cirrhosis: No Hx Alcoholism: No Hx HIV/AIDS: No Hx Splenectomy or Spleen Trauma: No Other PMH: Chronic atrial fibrillation, HTN, chf, tonsillectomy - Social History Smoking Status: Never smoked Time Seen by Provider: 08/13/18 18:56 HPI/ROS: HPI: This is an 78-year-old female who presents with Chief Complaint: Nosebleed Location: Left nostril Quality: Bleeding Duration: 3 hr prior to arrival Signs and Symptoms: no fever, no nausea, no vomiting, no photophobia, no noise sensitivity, no neck stiffness, no ear pain, no tinnitus, no nasal congestion, no sinus pressure, no weakness, no radiation, no aura Timing: Acute Severity: Moderate Context: Patient presents via EMS with a nose bleed that started 3 hr prior to arrival while she was sitting on the couch watching TV. She reports that she applied direct pressure and it was stop for 20 min but then restart. 1 hr prior to arrival to the emergency room she reports that the bleeding increased inflow. She then called EMS. She has a history of atrial fibrillation and is on Pradaxa. She has a history of nose bleeds and is a [facility] patient followed by ear nose and throat. She reports that she has packing placed and follows up with ENT and is unable to find the site of bleeding and has never been cauterized. She denies any dizziness, chest pain, shortness of breath. Initial BP upon EMS arrival was 148/92. Patient reports that she took her blood pressure pills today. Chart review shows that last epistaxis occurred on 07/26/2018. Modifying Factors: Direct pressure with transient relief Comment: ROS: A comprehensive 10 system review of systems is otherwise negative aside from elements mentioned in the history of present illness. MEDICAL/SURGICAL/SOCIAL HISTORY: Medical history: Chronic atrial fibrillation, HTN, chf Surgical history: Tonsillectomy Social history: Retired. Nonsmoker. Family history noncontributory. CONSTITUTIONAL: Moderate distress elderly white female, awake and alert, talkative HEENT: Atraumatic and normocephalic, PERRL, EOMI. Nasal clip noted on bridge of nose; lose bright red blood noted from left nostril. Nares patent. No septal hematoma. Tympanic membranes clear. Oropharynx clear, no exudate and moist pink mucosa. Airway patent. No lymphadenopathy. No meningismus. Cardiovascular: Normal S1/S2, irregular rate, regular rhythm, without murmur rub or gallop. PULMONARY/CHEST: Symmetrical and nontender. Clear to auscultation bilaterally. Good air movement. No accessory muscle usage. ABDOMEN: Soft, nondistended, nontender, no rebound, no guarding, no peritoneal signs, no masses or organomegaly. No CVAT. EXTREMITIES: 2/2 pulses, strength 5/5, no deformities, no clubbing, no cyanosis or edema. NEUROLOGICAL: no focal neuro deficits. GCS 15. SKIN: Warm and dry, pallor, no erythema. no rash. Good capillary refill. (Jeri Teague) Constitutional: Initial Vital Signs Temperature (C) 36.8 C 08/13/18 19:00 Heart Rate 99 08/13/18 19:00 Respiratory Rate 18 08/13/18 19:00 Blood Pressure 118/85 H 08/13/18 19:00 O2 Sat (%) 94 08/13/18 19:00 O2 Delivery Mode Room Air Allergies/Adverse Reactions: NSAIDS (Non-Steroidal Anti-Inflamma Allergy (Intermediate, Verified 08/13/18 19: 16) Rash quinidine Allergy (Verified 08/13/18 19:16) shellfish derived Allergy (Verified 08/13/18 19:16) Home Medications: Medication Instructions Recorded Atenolol [Tenormin 100 mg (*)] 100 mg PO BID 08/01/15 Losartan Potassium [Cozaar 50 mg 50 mg PO DAILY 08/01/15 (*)] Pradaxa 07/26/18 Medical Decision Making Procedures: Procedure: Epistaxis control. After verbal consent was obtained, the patient was NOT anesthetized. The anterior epistaxis was NOT identified. The patient was treated with Afrin spray initially both nostrils and left rhino rocket soaked in TXA with balloon to 8 mL and right rhino rocket with balloon to 4 mL. Following the procedure the patient was re-examined and the bleeding was well controlled. The patient tolerated the procedure well. The procedure was performed by myself. (Jeri Teague) ED Course/Re-evaluation: Vital signs reviewed and stable upon arrival. No hypertension. Placed on court monitor. Afrin sprayed into both nostrils and 5.5 cm rhino rockets soaked in TXA placed in left and right nostril with cessation of bleeding. Monitored for 3 hours in the ER without return of bleeding. [facility] patient, follow up with ENT This patient was seen under the supervision of my secondary supervising physician. I evaluated care for this patient independently. Discussed this patient with Dr. Christianson who did not see the patient. (Jeri Teague) Differential Diagnosis: Differential diagnosis includes but is not limited to coagulopathy, anterior epistaxis, posterior epistaxis, hypertension, dry nasal mucosa, digital trauma, sinusitis, malignancy. (Jeri Teague) Other Provider: The patient was evaluated and managed by the Physician [employer]. I discussed the patient's presentation and course with the midlevel provider with them and agree with the evaluation. My co-signature indicates that I have reviewed this chart and I agree with the findings and plan of care as documented. I am the secondary supervising physician. (Mita Christianson) Departure - Departure Disposition: Home, Routine, Self-Care Clinical Impression: Epistaxis Condition: Good Instructions: Nosebleed (ED) Additional Instructions: Please leave packing in place until seen by ENT in the next 2-3 days. At the ENT visit, the packing will be removed. Please avoid blowing your nose or picking your nose. Return at once for any worsening symptoms or concerns. Referrals: Patient,NotPresent [Unknown] - As per Instructions Nicole Chen MD [Medical Doctor] - As per Instructions
[2018-08-13] MEDS ORDERED: OXYMETAZOLINE 30 ML NASAL SPRAY ONE (18:59)
[2018-08-13] MEDS ORDERED: TRANEXAMIC ACID 1,000 MG/10 ML VIAL ONE (18:59)
[2018-08-13 20:27] VITALS: BP 131/89
== END 2018-08-13 22:37 | disposition home or self-care (01) ==
LOC: EDUNIT#
PROC: 2Y41X5Z Packing of Nasal Region using Packing Material (ICD-10-PCS; principal; 2018-08-13)
DX: R04.0 Epistaxis (principal)